=== PATIENT | male | born 1935 | race Caucasian/White ===

== ENCOUNTER → 2016-07-09 | Day surgery (SDC) | payer OTHER ==
[~2016-07-09] MED LIST: ACETAMINOPHEN 1000 MG/100 ML VIAL IV ONE; ASPI81 PO; BUPIVACAINE/EPINEPHRINE 0.25% 50 ML VIAL ONE; CO Q60CA2 PO; DONNTAB12 PO; LACTATED RINGER'S 1000 ML INJ 1,000 ML ONE; LIPI10TA PO; METO25 PO; ONDANSETRON HCL 4 MG/2 ML VIAL IV PUSH ONE; PLAV75TA PO; PRIL40CA PO; PRIN5TAB PO; PROPOFOL 200 MG/20 ML AMP IV ONE; PROZ20CA11 PO; VITA250L PO; VITA400C58 PO; ceFAZolin 2 GM PREMIX 50 ML ONE; metroNIDAZOLE 500 MG INJ 100 ML IV ONE
--- NOTE | 2016-07-09 10:38 | TN ---
cc: LAURA VELASQUEZ M.D. DATE OF SURGERY 07/09/2016 PREOPERATIVE DIAGNOSIS Chronic calculous cholecystitis. POSTOPERATIVE DIAGNOSES Chronic calculous cholecystitis. Umbilical hernia. PROCEDURE Laparoscopic cholecystectomy. Repair umbilical hernia. SURGEON Dr. Laura Velasquez SECTION CREWS ACTIVITIES CLERK Nidia Kauffman, SECRETARY BOOK KEEPER ANESTHESIA General. INDICATIONS This is a pleasant 80-year-old gentleman who has had several minor episodes of upper abdominal pain. He has a workup which demonstrates chronic calculous cholecystitis. He is on Plavix and aspirin and has stopped the anticoagulant medications on the approval of Dr. Zamudio, his tail board worker. INTRAOPERATIVE FINDINGS 1. Severe inflammatory changes of the gallbladder consistent with chronic calculous cholecystitis. Thickened shrunken gallbladder with dense adhesions. Gallbladder removed and sent to pathology. 2. Small less than 1-cm umbilical hernia defect with incarcerated preperitoneal fat primarily repaired with suture. ESTIMATED BLOOD LOSS Less than 5 mL. NOTE This procedure was assisted by my nurse practitioner. The skill set of an SECRETARY BOOK KEEPER was medically necessary to provide excellent visualization laparoscopically and improve efficiency in the surgical procedure. The certified surgical first assistant was at the back table providing appropriate instrumentation while the nurse practitioner was directly assisting me through the entirety of the procedure. DESCRIPTION OF PROCEDURE IN DETAIL The patient was identified as Saul Ventura, taken to the operating room and placed in supine position. Sequential compression devices were placed on the bilateral lower extremities. Following induction of adequate general endotracheal anesthesia, the patient's abdomen was prepped and draped in the usual sterile fashion with Betadine. A time-out procedure was performed. Following completion of the time-out procedure to everyone's satisfaction within the room, 0.25% Marcaine with epinephrine was placed at each incision site. A supraumbilical 2-3 cm transverse incision was carried out with scalpel. Dissection continued posteriorly. Herniated preperitoneal fatty tissue was identified and from surrounding normal subcutaneous fat down to the level of the fascia and the small umbilical hernia defect. This was extended superiorly using the harmonic scalpel to allow for entry into the peritoneal cavity with the surgeon's finger. The [employer] balloon Leslie trocars was placed in the peritoneal cavity, its balloon inflated with CO2 insufflation until the level of 15 mmHg ensued. The patient was placed in a reverse Trendelenburg position, turned to the left and two upper abdominal 5-mm trocars placed in the peritoneal cavity under direct laparoscopic view after incision in the skin with a scalpel. The gallbladder was immediately identified with significantly inflamed inflammatory adhesions of the omentum two of which were taken down using the harmonic scalpel. The gallbladder is then removed from the gallbladder fossa in a dome-down technique using the harmonic scalpel. The cystic arterial branch was divided with a harmonic scalpel. The cystic duct was isolated from surrounding tissues, ligated proximally and distally with 0-PDS Endoloops and divided between the Endoloops using the harmonic scalpel. The gallbladder was removed from peritoneal cavity through the umbilical hernial defect and passed off the field for pathologic evaluation. The right upper quadrant was irrigated and suctioned out. There was no bilious or bloody drainage. The cystic duct ligature remained intact. The cystic arterial stump remained hemostatic. Remaining local anesthetic was placed in the subhepatic position. Brief survey of the intraabdominal contents demonstrated no additional abnormality. The abdomen was desufflated through the umbilical port after the 5-mm trocars had been removed under direct visualization. There was no evidence of bleeding from the trocar sites. The umbilical port was removed. The umbilical fascial defect was closed with multiple interrupted 0 Vicryl sutures. Port sites were irrigated copiously with saline. Skin incisions were approximated with 4-0 Monocryl subcuticular sutures. Dressings were applied, Mastisol, 1/2-inch brown Steri-Strips, gauze and Tegaderm at the umbilicus. The patient tolerated the procedure without apparent complication. Sponge, needle and instrument counts were correct at the end of case. MD NEELIMA López/PATRICK /10:20 AM /10:28 AM
== END | disposition home or self-care (01) ==
LOC: ESDC 07:03
PROVIDERS: ATTEND Surgery Trauma Surgery
DX: K81.1 Chronic cholecystitis (principal); K42.9 Umbilical hernia without obstruction or gangrene; Z79.02 Long term (current) use of antithrombotics/antiplatelets
CPT/HCPCS: 00750; 00790; 47562; 49585; 88304; J0131; J0690; J2405; J3010; J7120